=== PATIENT | female | born 1960 | race Caucasian/White ===

== ENCOUNTER → 2021-12-08 | Outpatient (CLI) | payer OTHER ==
[~2021-12-08] MED LIST: ALPRAZOLAM0.5 MG PO; AMBIEN10 MG PO; BENADRYL 25MG C25 MG PO; CELEBREX 200MG200 MG PO; DICLOFENAC TOP; DITROPAN 5 MG TA5 MG PO; LOPRESSOR 25 MG25 MG PO; NEURONTIN 100100 MG PO; NORCO 5-325 TA1 EACH PO; ULTRAM50 MG PO; VITAMIN D35000 UNI1 PO
== END ==
LOC: RAD 07:20
DX: K44.9 Diaphragmatic hernia without obstruction or gangrene (principal)
CPT/HCPCS: 74246

== ENCOUNTER → 2022-01-30 | Outpatient (CLI) | payer OTHER | LOC: EROP 10:22 | DX: Z20.822 Contact with and (suspected) exposure to COVID-19 (principal) | CPT/HCPCS: U0002 ==